=== PATIENT | male | born 1960 | race Caucasian/White ===

== ENCOUNTER 2023-10-27 19:56 | Emergency (ER) | payer SELFPAY ==
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
[2023-10-27 23:21] VITALS: BP 155/97
[2023-10-27 23:38] VITALS: BP 155/97
== END 2023-10-27 23:40 | disposition home or self-care (01) ==
LOC: EMR 19:56
PROVIDERS: EMERGENCY PHYSICIAN Emergency Medicine
DX: S50.12XA Contusion of left forearm, initial encounter (principal); S50.11XA Contusion of right forearm, initial encounter; V49.40XA Driver injured in collision with unspecified motor vehicles in traffic accident, initial encounter; W22.10XA Striking against or struck by unspecified automobile airbag, initial encounter; Y92.410 Unspecified street and highway as the place of occurrence of the external cause; R03.0 Elevated blood-pressure reading, without diagnosis of hypertension
CPT/HCPCS: 99282